=== PATIENT | male | born 1970 | race Two or more races ===

== ENCOUNTER 2018-06-30 15:36 | Emergency (ER) | payer OTHER ==
[~2018-06-30] VITALS: Ht 177.8 cm; Wt 96.6 kg
== END 2018-06-30 20:08 | disposition home or self-care (01) ==
LOC: ER 15:36
DX: J06.9 Acute upper respiratory infection, unspecified (principal); R50.9 Fever, unspecified

== ENCOUNTER 2023-06-23 11:53 | Emergency (ER) | payer OTHER ==
[~2023-06-23] VITALS: Ht 177.8 cm; Wt 99.8 kg
== END 2023-06-23 15:37 | disposition home or self-care (01) ==
LOC: ER 11:53
DX: S51.811A Laceration without foreign body of right forearm, initial encounter (principal); W26.0XXA Contact with knife, initial encounter; Y93.9 Activity, unspecified; Y92.9 Unspecified place or not applicable; Y99.9 Unspecified external cause status